=== PATIENT | male | born 1995 | race Two or more races ===

== ENCOUNTER 2020-09-07 12:41 | Emergency (ER) | payer SELFPAY ==
[~2020-09-07] VITALS: Ht 182.9 cm; Wt 97.0 kg
[2020-09-07 12:43] VITALS: BP 151/99
--- NOTE | 2020-09-07 12:49 | NUR ---
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
== END 2020-09-07 12:58 | disposition home or self-care (01) ==
LOC: ED 12:50
DX: S91.012D Laceration without foreign body, left ankle, subsequent encounter (principal); X58.XXXD Exposure to other specified factors, subsequent encounter
CPT/HCPCS: 99281